=== PATIENT | female | born 1985 | race Caucasian/White ===

== ENCOUNTER 2017-09-11 22:37 | Outpatient (CLI) | payer BC ==
[2017-09-11 22:51] VITALS: BP 118/63
== END 2017-09-11 23:30 | disposition home or self-care (01) ==
LOC: WFO 22:37 → FBP 22:40 → WFO 23:30
PROVIDERS: ATTEND Obstetrics & Gynecology
DX: Z34.83 Encounter for supervision of other normal pregnancy, third trimester (principal)
CPT/HCPCS: 99212